=== PATIENT | female | born 1940 | race Caucasian/White ===

== ENCOUNTER → 2017-02-23 | Outpatient (CLI) | payer MEDICARE, OTHER ==
[~2017-02-23] MED LIST: AMOX-559 PO; ASPI-1471 PO; CHOL200074 PO; ESCI5TAB10 PO; FLUT16SP19 NS; GLUC-198 PO; MULT-1335 PO; TRIA1CAP85 PO; [UNRECOGNIZED DRUG - CODE] PO
--- NOTE | 2017-02-23 12:41 | RADIOLOGY IMAGING REPORT ---
FACILITY: [facility] [place] PATIENT NAME: Alejandra Freeman : 1940 MR: [id number] V: [id number] EXAM DATE: ORDERING PHYSICIAN: JUSTINA GONZALEZ TECHNOLOGIST: Location: [facility] Patient: Alejandra Freeman : 1940 Visit/Account:[id number] Date of Sevice: 02/23/2017 Examination: CHEST PA AND LAT Comparison: None. History: Cough, shortness of breath, and chest pain for one month Findings: Pulmonary hyperexpansion. No consolidation, nodule, or peribronchial inflammation. No pneum othorax, edema, or effusion. Cardiac and hilar contour size is within normal limits. Osseous structur es are intact. IMPRESSION: Pulmonary hyperexpansion. No findings of acute cardiopulmonary disease are otherwise identified. Report Dictated By: Sidney Moreau MD at 02/23/2017 12:35 PM Report E-Signed By: Sidney Moreau MD at 02/23/2017 12:37 PM WSN:[id number]
== END ==
LOC: RAD 12:02
PROVIDERS: ATTEND Nurse Practitioner Primary Care
DX: R91.8 Other nonspecific abnormal finding of lung field (principal)
CPT/HCPCS: 71046

== ENCOUNTER → 2017-02-27 | Outpatient (CLI) | payer MEDICARE, OTHER ==
[~2017-02-27] MED LIST changes: +CHOL100059 PO; +ESCI10TA8 PO; +TRIA-20 PO
[2017-02-27 11:10] LABS: PLATELET COUNT, AUTOMATED 316 K/uL (150-450)
[2017-02-27 11:44] LABS: LDL CHOLESTEROL 101 mg/dl
== END ==
LOC: LAB 10:52
PROVIDERS: ATTEND Emergency Medicine
DX: M85.80 Other specified disorders of bone density and structure, unspecified site (principal); R63.4 Abnormal weight loss; I10 Essential (primary) hypertension
CPT/HCPCS: 36415; 82040; 82247; 82306; 82310; 82374; 82435; 82465; 82565; 82947; 83718; 84075; 84132; 84155; 84295; 84443; 84450; 84460; 84478; 84520; 85007; 85027

== ENCOUNTER → 2017-03-13 | Outpatient (CLI) | payer MEDICARE, OTHER ==
[~2017-03-13] MED LIST changes: +ATOR40TA24 PO; +DIPH0.5D12 IM; +PNEU0.5D3 IM
== END ==
LOC: LAB 10:06
PROVIDERS: ATTEND Emergency Medicine
DX: R74.8 Abnormal levels of other serum enzymes (principal)
CPT/HCPCS: 36415; 82040; 82247; 82248; 84075; 84155; 84450; 84460

== ENCOUNTER → 2017-04-12 | Outpatient (CLI) | payer MEDICARE, OTHER | LOC: LAB 08:26 | PROVIDERS: ATTEND Emergency Medicine | DX: E78.5 Hyperlipidemia, unspecified (principal) | CPT/HCPCS: 36415; 82465; 83718; 84478 ==

== ENCOUNTER 2017-05-23 17:07 | Emergency (ER) | payer MEDICARE, OTHER ==
--- NOTE | 2017-05-23 17:21 | ER Report ---
History and Physical Time Seen By MD: 17:20 Hx. of Stated Complaint: patient reports that she has had a cough for the last 3 months. she reports that she became short of breath in the last 2 days HPI/ROS CHIEF COMPLAINT: Shortness of breath, cough HISTORY OF PRESENT ILLNESS: 76-year-old female patient presents to emergency room with complaint of shortness of breath and cough. Patient states that her and her were traveling, mid visited [place]. While there there patient was walking without any difficulties. She states when they returned home today she did take her dog out for a walk, during that time she felt very short of breath. She states that she ended up cutting the walk short to return back to the house. Patient denies any fevers, chills. Patient states she has had a cough for the past several months. She states that she was doing well until today when things started to get worse. REVIEW OF SYSTEMS: Respiratory: Noted above Cardiovascular: Patient was having substernal chest pain. Gastrointestinal: No vomiting, no abdominal pain. Musculoskeletal: No back pain. Allergies: Coded Allergies: No Known Drug Allergies (Unverified , 07/30/16) Home Meds Active Scripts Albuterol Sulfate 90 Mcg/Act (PROAIR HFA 90 MCG/ACT) 8.5 Gm Hfa.aer.ad, 2 PUFF IH Q4-6H Y for SHORTNESS OF BREATH, #1 INHALER Prov:DANIEL ROBINS 05/23/17 Atorvastatin Calcium (LIPITOR) 40 Mg Tablet, 1 TAB PO QDAY, #90 TAB 3 Refills Prov:IVAN ESCOBAR MD 04/12/17 Triamterene/Hydrochlorothiazid (TRIAMTERENE-HCTZ 37.5-25 MG TB) 1 Each Tablet, 1 TAB PO DAILY, #90 TAB 3 Refills Prov:IVAN ESCOBAR MD 03/06/17 Escitalopram Oxalate (ESCITALOPRAM OXALATE) 10 Mg Tablet, 1 TAB PO DAILY, #90 TAB 3 Refills Prov:IVAN ESCOBAR MD 03/06/17 Fluticasone Prop 50 Mcg Ns (FLONASE 50 MCG NS) 16 Gm [place].susp, 1 SPRAY NS BID , #1 BOT 0 Refills Prov:JUSTINA GONZALEZ DNP, PEDIATRIC LPN-BC 01/19/17 Reported Medications Cholecalciferol (Vitamin D3) (VITAMIN D3) 1,000 Unit Capsule, 1 CAPSULE PO DAILY , CAPSULE 02/27/17 Multivitamin With Minerals (MULTIPLE VITAMIN) 1 Each Tablet, 1 EACH PO QDAY, TAB 07/30/16 Calcium Citrate (CALCIUM CITRATE) 480 Gm Granules, 1600 MG PO QDAY 01/12/16 Glucosa [place]ias 2KCL/Chondroitin [place] (GLUCOSAMINE & CHONDROITIN CAP) 1 Each Capsule, 4 EACH PO QDAY, CAPSULE 01/12/16 Aspirin (ASPIR 81) 81 Mg Tablet.dr, 81 MG PO QDAY, TAB 01/12/16 Past Medical/Surgical History Patient has a past medical history of irregular heartbeat, hypertension, osteopenia. Patient has a surgical history of inguinal hernia repair, tonsillectomy. Reviewed Nurses Notes: Yes Smoking Status: Never Smoker Constitutional Vital Sign - Last 24 Hours 05/23/17 05/23/17 05/23/17 05/23/17 17:11 17:12 17:16 17:30 Temp 98.4 Pulse 96 Resp 24 B/P (MAP) 165/99 (121) 165/99 154/96 (115) 155/99 (117) Pulse Ox 90 O2 Delivery Room Air 05/23/17 05/23/17 05/23/17 05/23/17 17:31 17:31 17:37 17:38 Pulse 96 94 96 Resp 14 30 14 Pulse Ox 93 99 O2 Delivery Nasal Cannula O2 Flow Rate 2.0 05/23/17 05/23/17 05/23/17 05/23/17 18:00 18:07 18:30 18:37 Pulse 89 84 Resp 9 11 B/P (MAP) 144/86 (105) 136/80 (98) Pulse Ox 97 98 05/23/17 05/23/17 18:45 19:00 Pulse 85 82 Resp 16 9 B/P (MAP) 149/83 (105) Pulse Ox 97 97 Physical Exam General Appearance: The patient is alert, has no immediate need for airway protection and no current signs of toxicity. ENT: Tympanic membranes are pearly-marvin, auditory canals are patent, mucous membranes are moist. Respiratory: Chest is non tender, lungs are clear to auscultation. Cardiac: regular rate and rhythm Gastrointestinal: Abdomen is soft and non tender, no masses, bowel sounds normal. Musculoskeletal: Neck: Neck is supple and non tender. Extremities have full range of motion and are non tender. Skin: No rashes or lesions. DIFFERENTIAL DIAGNOSIS: After history and physical exam differential diagnosis was considered for shortness of breath including but not limited to pulmonary infectious process, COPD, asthma, pulmonary embolus and congestive heart failure. Medical Decision Making Data Points Result Diagram: 05/23/17 1720 05/23/17 1720 Laboratory Hematology Test 05/23/17 17:20 Red Blood Count 4.56 M/uL (4.17-5.56) Mean Corpuscular Volume 91.8 fL (80.0-96.0) Mean Corpuscular Hemoglobin 32.1 pg (26.0-33.0) Mean Corpuscular Hemoglobin Concent 35.0 g/dL (32.0-36.0) Red Cell Distribution Width 13.7 % (11.5-14.5) Mean Platelet Volume 7.7 fL (7.2-11.1) Neutrophils (%) (Auto) 56.0 % (39.4-72.5) Lymphocytes (%) (Auto) 30.0 % (17.6-49.6) Monocytes (%) (Auto) 8.2 % (4.1-12.4) Eosinophils (%) (Auto) 5.2 % (0.4-6.7) Basophils (%) (Auto) 0.6 % (0.3-1.4) Nucleated RBC Relative Count (auto) 0.1 /100WBC Neutrophils # (Auto) 4.4 K/uL (2.0-7.4) Lymphocytes # (Auto) 2.3 K/uL (1.3-3.6) Monocytes # (Auto) 0.6 K/uL (0.3-1.0) Eosinophils # (Auto) 0.4 K/uL (0.0-0.5) Basophils # (Auto) 0.0 K/uL (0.0-0.1) Nucleated RBC Absolute Count (auto) 0.01 K/uL D-Dimer Quantitative (PE/DVT) 0.42 ug/ml (0-0.50) Sodium Level 133 mmol/L (137-145) Potassium Level 3.8 mmol/L (3.5-5.0) Chloride Level 94 mmol/L (98-107) Carbon Dioxide Level 26 mmol/L (22-31) Blood Urea Nitrogen 17 mg/dl (7-18) Creatinine 0.80 mg/dl (0.52-1.04) Glomerular Filtration Rate Calc > 60.0 Random Glucose 98 mg/dl (75-110) Calcium Level 9.5 mg/dl (8.4-10.2) Total Bilirubin 0.3 mg/dl (0.2-1.3) Aspartate Amino Transf (AST/SGOT) 52 U/L (0-35) Alanine Aminotransferase (ALT/SGPT) 49 U/L (0-56) Alkaline Phosphatase 102 U/L (0-126) Troponin I < 0.012 ng/ml B-Type Natriuretic Peptide 134 pg/ml (0-100) Total Protein 7.6 gm/dl (6.3-8.2) Albumin 4.1 g/dl (3.5-5.0) Chemistry Test 05/23/17 17:20 White Blood Count 7.8 k/uL (4.5-11.0) Red Blood Count 4.56 M/uL (4.17-5.56) Hemoglobin 14.6 g/dL (12.0-16.0) Hematocrit 41.9 % (34.0-47.0) Mean Corpuscular Volume 91.8 fL (80.0-96.0) Mean Corpuscular Hemoglobin 32.1 pg (26.0-33.0) Mean Corpuscular Hemoglobin Concent 35.0 g/dL (32.0-36.0) Red Cell Distribution Width 13.7 % (11.5-14.5) Platelet Count 263 K/uL (150-450) Mean Platelet Volume 7.7 fL (7.2-11.1) Neutrophils (%) (Auto) 56.0 % (39.4-72.5) Lymphocytes (%) (Auto) 30.0 % (17.6-49.6) Monocytes (%) (Auto) 8.2 % (4.1-12.4) Eosinophils (%) (Auto) 5.2 % (0.4-6.7) Basophils (%) (Auto) 0.6 % (0.3-1.4) Nucleated RBC Relative Count (auto) 0.1 /100WBC Neutrophils # (Auto) 4.4 K/uL (2.0-7.4) Lymphocytes # (Auto) 2.3 K/uL (1.3-3.6) Monocytes # (Auto) 0.6 K/uL (0.3-1.0) Eosinophils # (Auto) 0.4 K/uL (0.0-0.5) Basophils # (Auto) 0.0 K/uL (0.0-0.1) Nucleated RBC Absolute Count (auto) 0.01 K/uL D-Dimer Quantitative (PE/DVT) 0.42 ug/ml (0-0.50) Glomerular Filtration Rate Calc > 60.0 Calcium Level 9.5 mg/dl (8.4-10.2) Total Bilirubin 0.3 mg/dl (0.2-1.3) Aspartate Amino Transf (AST/SGOT) 52 U/L (0-35) Alanine Aminotransferase (ALT/SGPT) 49 U/L (0-56) Alkaline Phosphatase 102 U/L (0-126) Troponin I < 0.012 ng/ml B-Type Natriuretic Peptide 134 pg/ml (0-100) Total Protein 7.6 gm/dl (6.3-8.2) Albumin 4.1 g/dl (3.5-5.0) Coagulation Test 05/23/17 17:20 D-Dimer Quantitative (PE/DVT) 0.42 ug/ml EKG/Imaging EKG Interpretation 12 lead EKG: Rhythm: normal sinus rhythm with a ventricular rate of 86 beats per minute [place]: normal QRS: normal ST segments: normal Imaging 2 VIEWS CHEST INDICATION: Respiratory distress. COMPARISON: 02/23/2017. FINDINGS: Cardiomediastinal silhouette and pulmonary vessels within normal limits. There is no focal infiltrate or lobar consolidation. There is no pneumothorax or pleural effusion. No nodule. Upper abdomen is unremarkable. No acute bony abnormality. IMPRESSION: 1. No acute cardiopulmonary process. Report Dictated By: Sarkis Vinson at 05/23/2017 6:25 PM Report E-Signed By: Sarkis Vinson at 05/23/2017 6:26 PM ED Course/Re-evaluation ED Course Patient was admitted and examined, history and physical were obtained. Differential diagnoses were considered. On examination lungs were clear, she had initially been assessed by a nurse practitioner student, who said that her lungs were wheezy. Patient did receive a treatment of DuoNeb. There is significant improvement in lung sounds after that. A CBC, CMP, EKG, chest x-ray , d-dimer, troponin were done. The lab results were unremarkable, chest x-ray was negative. Patient had a normal sinus rhythm on her EKG. We discussed the findings with the patient. Patient states she still feeling much improved. We will go ahead and discharge patient home with a prescription for albuterol inhaler. I believe this is likely an upper respiratory infection which is causing more of a reactive airway problem. Patient and verbalized understanding and agreement with plan. Decision to Disposition Date: May 23, 2017 Decision to Disposition Time: 19:00 Depart Departure Latest Vital Signs Vital Signs Date Time Temp Pulse Resp B/P (MAP) Pulse Ox O2 Delivery O2 Flow Rate FiO2 05/23/17 19:00 82 9 149/83 (105) 97 05/23/17 17:31 Nasal Cannula 2.0 05/23/17 17:12 98.4 Impression: Primary Impression: Acute URI Condition: Improved Disposition: HOME OR SELF-CARE Referrals: IVAN ESCOBAR MD (PCP) New Scripts Albuterol Sulfate 90 Mcg/Act (PROAIR HFA 90 MCG/ACT) 8.5 Gm Hfa.aer.ad 2 PUFF IH Q4-6H Y for SHORTNESS OF BREATH, #1 INHALER Prov: DANIEL ROBINS 05/23/17 Patient Instructions: Upper Respiratory Infection (ED) Additional Instructions: You have an acute upper respiratory infection (URI). URI's are commonly viral and with resolve with symptom managed. The albuterol worked well for you and we have sent a script for this in. Drink plenty of fluid, rest, and use a cool air vaporizer. We recommend you pickler helper OTC Mucinex for chest congestion. Follow-up with you primary care provider for the chronic cough or if symptoms fail to resolve. Return to the emergency room if condition worsens. DANIEL ROBINS May 23, 2017 17:21
[2017-05-23] MEDS ORDERED: ALBUTEROL/IPRATROPIUM 3 ML NEB ONE (17:24)
[2017-05-23] MEDS ORDERED: ALBUTEROL/IPRATROPIUM 3 ML NEB NEB ONE (17:25)
[2017-05-23 17:48] LABS: PLATELET COUNT, AUTOMATED 263 K/uL (150-450)
--- NOTE | 2017-05-23 18:30 | RADIOLOGY IMAGING REPORT ---
[place] [facility] [place] NAME: Alejandra Freeman : 1940 MR: [id number] V: [id number] EXAM DATE: ORDERING PHYSICIAN: DANIEL ROBINS TECHNOLOGIST: Location: [facility] Patient: Alejandra Freeman : 1940 Visit/Account:[id number] Date of Sevice: 05/23/2017 2 VIEWS CHEST INDICATION: Respiratory distress. COMPARISON: 02/23/2017. FINDINGS: Cardiomediastinal silhouette and pulmonary vessels within normal limits. There is no focal infiltrate or lobar consolidation. There is no pneumothorax or pleural effusion. No nodule. Upper abdomen is unremarkable. No acute bony abnormality. IMPRESSION: 1. No acute cardiopulmonary process. Report Dictated By: Sarkis Vinson at 05/23/2017 6:25 PM Report E-Signed By: Sarkis Vinson at 05/23/2017 6:26 PM WSN:[id number]
--- NOTE | 2017-05-23 18:51 | EKG ---
FACILITY: PATIENT NAME: CYNTHIA STROUD : [id number] MR: [id number] V: [id number] EXAM DATE: ORDERING PHYSICIAN: DANIEL ROBINS TECHNOLOGIST: MASSIEL Springer Reason : SOB Blood Pressure : / mmHG Vent. Rate : 086 BPM Atrial Rate : 086 BPM P-R Int : 170 ms QRS Dur : 098 ms QT Int : 398 ms P-R-T Axes : 074 030 060 degrees QTc Int : 476 ms Normal sinus rhythm RSR' or QR pattern in V1 suggests right ventricular conduction delay Borderline ECG No previous ECGs available Confirmed by WALDO TORREZ ([id number]) on 05/24/2017 6:33:06 AM Referred By: JULIENNE Confirmed By:WALDO TORREZ
[2017-05-23] MEDS ORDERED: ALBU8.5H IH (18:55)
[2017-05-23 19:00] VITALS: BP 149/83
[2017-05-24] MEDS ORDERED: PRED-1 PO (11:31)
[2017-05-24] MEDS ORDERED: PROM-110 PO (11:31)
[2017-05-24] MEDS ORDERED: AZIT-1 PO (11:31)
[2017-05-24] MEDS ORDERED: ALPR-1 PO (11:35)
== END 2017-05-23 19:16 | disposition home or self-care (01) ==
LOC: ER 17:46
DX: J06.9 Acute upper respiratory infection, unspecified (principal)
CPT/HCPCS: 83880; 84484; 85025; 85379; 93005; 94640; 99284; J7620; 71046; 82040; 82247; 82310; 82374; 82435; 82565; 82947; 84075; 84132; 84155; 84295; 84450; 84460; 84520

== ENCOUNTER → 2017-05-24 | Outpatient (CLI) | payer MEDICARE, OTHER ==
[~2017-05-24] MED LIST changes: +ALBU8.5H IH; +ALPR-1 PO; +AZIT-1 PO; +PRED-1 PO; +PROM-110 PO
[2017-05-24 11:51] LABS: PLATELET COUNT, AUTOMATED 275 K/uL (150-450)
== END ==
LOC: LAB 11:29
PROVIDERS: ATTEND Emergency Medicine
DX: R06.00 Dyspnea, unspecified (principal)
CPT/HCPCS: 36415; 82040; 82247; 82310; 82374; 82435; 82565; 82947; 83880; 84075; 84132; 84155; 84295; 84450; 84460; 84520; 85025

== ENCOUNTER → 2017-05-28 | Outpatient (CLI) | payer MEDICARE, OTHER ==
[2017-05-28 15:32] LABS: PLATELET COUNT, AUTOMATED 282 K/uL (150-450)
== END ==
LOC: LAB 14:46
PROVIDERS: ATTEND Emergency Medicine
DX: J06.9 Acute upper respiratory infection, unspecified (principal); E87.1 Hypo-osmolality and hyponatremia; R06.00 Dyspnea, unspecified
CPT/HCPCS: 36415; 82310; 82374; 82435; 82565; 82947; 83880; 84132; 84295; 84520; 85025

== ENCOUNTER → 2017-06-04 | Outpatient (CLI) | payer MEDICARE, OTHER ==
--- NOTE | 2017-06-06 09:15 | RADIOLOGY IMAGING REPORT ---
[place] [facility] [place] CYNTHIA STROUD : [id number] MR: [id number] V: [id number] EXAM DATE: ORDERING PHYSICIAN: IVAN ESCOBAR TECHNOLOGIST: Jacy Mauricio EXAMINATION:TWO-DIMENSIONAL ECHOCARDIOGRAPH REASON:ELEVATED BNP 2D Measurements (normal values in centimeters) LV endLV endRV endVent.LV PostAorticLeftPercent DiastolicSystolicDiastolicSeptumWallRootAtriumShortening (3.5-5.7)(0.9-2.6)(0.6-1.1)(0.6-1.1)(2.0-3.7)(1.9-4.0)(25-35%) [id number]% STROKE VOLUME: 40ml ESTIMATED EJECTION FRACTION:70% PARASTERNAL LONG AXIS: Overall left ventricular systolic function appears to be normal. Left ventricle also appears to contract normally & the TAPSE is measured at 2.3. Aortic valve & mitral valve both appear to open normally. Possibly a trace of prolapse in the posterior leaflet of the mitral valve. Color examination of the valves reveals a trace of mitral insufficiency. A trace of aortic insufficiency was also noted. PARASTERNAL SHORT AXIS: Overall left ventricular function again appears to be normal. Aortic valve is trileaflet in configuration & appears to open normally with a trace of aortic insufficiency. A trace of tricuspid insufficiency is also noted as well as a trace of pulmonic insufficiency. APICAL FOUR AND TWO CHAMBER: Normal left ventricular ejection fraction. Normal chamber sizes. The aortic valve area & mitral valve area both measure within normal ranges at 2.0 & 4.3cm2 respectively. The left atrial & right atrial volumes are measured within normal ranges at 22 & 21ml/m2. The tricuspid regurgitation Vmax measured 2.69m/sec. SUBCOSTAL VIEW: No pericardial effusion was noted. No atrioseptal or ventriculoseptal defects were appreciated. Doppler examination of the mitral valve in diastole does reveal the A wave > E wave. IVC is normal in size. OVERALL IMPRESSION: 1. Normal left ventricular systolic function with a Grade 1 mild decrease in diastolic function. 2. There are normal chamber sizes. 3. Right ventricle appears to contract normally. 4. A trileaflet aortic valve with no stenosis & a trace of aortic insufficiency. 5. A trace of pulmonic insufficiency. 6. A trace of mitral insufficiency with no mitral stenosis. There is a minimal amount of prolapse of the posterior leaflet of the mitral valve. 7. A trace amount of tricuspid insufficiency with normal right ventricular systolic pressures. Dictated by: Jacinda Michele M.D. on 06/05/2017 at 14:06 Transcribed by: DEMARIO on 06/06/2017 at 7:16 Approved by: Jacinda Michele M.D. on 06/06/2017 at 9:14 [facility]
== END ==
LOC: US 03:31
PROVIDERS: ATTEND Emergency Medicine
DX: R79.89 Other specified abnormal findings of blood chemistry (principal); E87.1 Hypo-osmolality and hyponatremia; I35.1 Nonrheumatic aortic (valve) insufficiency; I37.1 Nonrheumatic pulmonary valve insufficiency; I34.0 Nonrheumatic mitral (valve) insufficiency; I36.1 Nonrheumatic tricuspid (valve) insufficiency
CPT/HCPCS: 36415; 82310; 82374; 82435; 82565; 82947; 84132; 84295; 84520; 93306

== ENCOUNTER 2017-06-12 19:45 | Emergency (ER) | payer MEDICARE, OTHER ==
--- NOTE | 2017-06-12 19:48 | ER Report ---
History and Physical Time Seen By MD: 19:46 HPI/ROS CHIEF COMPLAINT: Epigastric pain HISTORY OF PRESENT ILLNESS: 76-year-old female with sudden onset of aching deep bilateral upper quadrant pain since late afternoon. She notes severe nausea and was leaning over the toilet, but never actually vomited. She denies diarrhea or dysuria. Patient was seen by her primary care this morning for follow-up of echocardiogram and elevated BMP as well as management of her hypertension, hyperlipidemia and other medical issues. Patient did not have any symptoms at that time. Patient was concerned that she might be having a heart attack. She does note some mild shortness of breath but no diaphoresis. She notes no exacerbating or alleviating factors except lying down. She thinks the pain is significantly better since she relaxed here in the ER. REVIEW OF SYSTEMS: Respiratory: No cough, no dyspnea. Cardiovascular: No chest pain, no palpitations. Gastrointestinal: As above Musculoskeletal: No back pain. Allergies: Coded Allergies: No Known Drug Allergies (Unverified , 06/12/17) Home Meds Active Scripts Ondansetron (ZOFRAN ODT) 4 Mg Tab.rapdis, 4 MG PO every 6 hours Y for NAUSEA/ VOMITING, #12 TAB TAKE 1 TABLET BY MOUTH EVERY 12 HOURS Prov:DAMON SALINAS DO 06/12/17 Oxycodone Hcl/Acetaminophen (PERCOCET 5-325 MG TABLET) 1 Each Tablet, 1 EACH PO Q4-6H Y for PAIN, #15 Prov:DAMON SALINAS DO 06/12/17 Alprazolam 0.25 Mg Tab (XANAX 0.25 MG TAB) 0.25 Mg Tablet, 1 TAB PO TID for Anxiety, #10 TAB Prov:IVAN ESCOBAR MD 05/29/17 Promethazine Hcl (PROMETHAZINE HCL) 25 Mg Tablet, 25 MG PO Q8H for Nausea, #10 TAB Prov:IVAN ESCOBAR MD 05/24/17 Prednisone 10 Mg Tab (PREDNISONE 10 MG TAB) 10 Mg Tablet, 6 TAB PO QDAY, #42 TAB Take 6 tabs daily for 2 days. Reduce by 1 tab every 2 days until gone. Take with food. Prov:IVAN ESCOBAR MD 05/24/17 Albuterol Sulfate 90 Mcg/Act (PROAIR HFA 90 MCG/ACT) 8.5 Gm Hfa.aer.ad, 2 PUFF IH Q4-6H Y for SHORTNESS OF BREATH, #1 INHALER Prov:DANIEL ROBINS PROFESSIONAL SKATEBOARDER 05/23/17 Atorvastatin Calcium (LIPITOR) 40 Mg Tablet, 1 TAB PO QDAY, #90 TAB 3 Refills Prov:IVAN ESCOBAR MD 04/12/17 Triamterene/Hydrochlorothiazid (TRIAMTERENE-HCTZ 37.5-25 MG TB) 1 Each Tablet, 1 TAB PO DAILY, #90 TAB 3 Refills Prov:IVAN ESCOBAR MD 03/06/17 Escitalopram Oxalate (ESCITALOPRAM OXALATE) 10 Mg Tablet, 1 TAB PO DAILY, #90 TAB 3 Refills Prov:IVAN ESCOBAR MD 03/06/17 Fluticasone Prop 50 Mcg Ns (FLONASE 50 MCG NS) 16 Gm [place].susp, 1 SPRAY NS BID , #1 BOT 0 Refills Prov:JUSTINA GONZALEZ DNP, PROFESSIONAL SKATEBOARDER-BC 01/19/17 Reported Medications Cholecalciferol (Vitamin D3) (VITAMIN D3) 1,000 Unit Capsule, 1 CAPSULE PO DAILY , CAPSULE 02/27/17 Multivitamin With Minerals (MULTIPLE VITAMIN) 1 Each Tablet, 1 EACH PO QDAY, TAB 07/30/16 Calcium Citrate (CALCIUM CITRATE) 480 Gm Granules, 1600 MG PO QDAY 01/12/16 Glucosa [place] 2KCL/Chondroitin [place] (GLUCOSAMINE & CHONDROITIN CAP) 1 Each Capsule, 4 EACH PO QDAY, CAPSULE 01/12/16 Aspirin (ASPIR 81) 81 Mg Tablet.dr, 81 MG PO QDAY, TAB 01/12/16 Discontinued Scripts Azithromycin (ZITHROMAX) 250 Mg Tablet, 2 TAB PO ONCE, #6 TAB Take 2 now and then 1 daily for 4 days Prov:IVAN ESCOBAR MD 05/24/17 Past Medical/Surgical History Past Medical History HEENT: Reports hx of: hearing deficit (SENSORYNEURAL HEARING LOSS ) recurrent sinusitis (FREQUENT SINUS INFECTIONS ) Cardiovascular: Reports hx of: atrial fibrillation (1969's and s, 1990) hypertension (ESSENTIAL) other CV history (HX OF PAT NO RECURRENCES ) Respiratory: Reports hx of: other respiratory history (positive PPD reaction, several chest X-rays) Gastrointestinal: Reports hx of: diverticulosis GERD (REFLUX ) other GI history (HC OF COLON POLYPS ) Age at menopause: MENOPAUSAL SYMPTOMS Musculoskeletal: Reports hx of: osteoarthritis (OF LUMBAR SPINE AND OSTEOPENIA ) osteopenia scoliosis Past Surgical History HEENT: Reports hx of: cataract extraction (Fall 2016) tonsillectomy (2007) Gastrointestinal: Reports hx of: hernia repair (inguinal, 1967) Reviewed Nurses Notes: Yes Old Medical Records Reviewed: Yes Smoking Status: Never Smoker Constitutional Vital Sign - Last 24 Hours 06/12/17 19:53 Temp 98.7 Pulse 75 Resp 18 B/P (MAP) 132/84 Pulse Ox 96 Physical Exam General Appearance: The patient is alert, has no immediate need for airway protection and no current signs of toxicity. Vital signs stable, afebrile's, pulse ox HEENT: Pupils equal and round no injection. Oropharynx without redness or exudate, mucous. Membranes are moist Respiratory: Chest is non tender, lungs are clear to auscultation. No chest wall tenderness Cardiac: regular rate and rhythm, no murmur Gastrointestinal: Abdomen is soft, mild epigastric tenderness, no masses, bowel sounds normal. Musculoskeletal: Neck: Neck is supple and non tender. No JVD, no lymphadenopathy Extremities have full range of motion and are non tender. Skin: No rashes or lesions. DIFFERENTIAL DIAGNOSIS: After history and physical exam differential diagnosis was considered for abdominal pain including but not limited to appendicitis, cholecystitis, gastritis, cardiac ischemia and urinary tract infection. Medical Decision Making Data Points Result Diagram: 06/12/17201106/12/172011 Laboratory Hematology Test 06/12/17 19:52 06/12/17 20:12 Urine Color Yellow Urine Clarity Cloudy Urine pH 7.0 pH (4.8-9.5) Urine Specific [place] 1.015 Urine Protein Negative mg/dL (NEGATIVE) Urine Glucose (UA) Negative mg/dL (NEGATIVE) Urine Ketones Negative mg/dL (NEGATIVE) Urine Blood Negative (NEGATIVE) Urine Nitrite Negative (NEGATIVE) Urine Bilirubin Negative (NEGATIVE) Urine Urobilinogen Negative mg/dL (0.2-1.9) Urine Leukocyte Esterase Negative (NEGATIVE) Urine RBC <1 /HPF (0-2/HPF) Urine WBC <1 /HPF (0-5/HPF) Urine Squamous Epithelial Cells Few /LPF (</=FEW) Urine Amorphous Crystals Few /HPF Urine Bacteria Negative /HPF (NONE-FEW) Urine Mucus Few /HPF (NONE-FEW) Red Blood Count 4.52 M/uL (4.17-5.56) Mean Corpuscular Volume 91.3 fL (80.0-96.0) Mean Corpuscular Hemoglobin 31.8 pg (26.0-33.0) Mean Corpuscular Hemoglobin Concent 34.8 g/dL (32.0-36.0) Red Cell Distribution Width 13.8 % (11.5-14.5) Mean Platelet Volume 7.1 fL (7.2-11.1) Neutrophils (%) (Auto) 82.7 % (39.4-72.5) Lymphocytes (%) (Auto) 9.9 % (17.6-49.6) Monocytes (%) (Auto) 5.8 % (4.1-12.4) Eosinophils (%) (Auto) 1.2 % (0.4-6.7) Basophils (%) (Auto) 0.4 % (0.3-1.4) Nucleated RBC Relative Count (auto) 0.0 /100WBC Neutrophils # (Auto) 8.7 K/uL (2.0-7.4) Lymphocytes # (Auto) 1.0 K/uL (1.3-3.6) Monocytes # (Auto) 0.6 K/uL (0.3-1.0) Eosinophils # (Auto) 0.1 K/uL (0.0-0.5) Basophils # (Auto) 0.0 K/uL (0.0-0.1) Nucleated RBC Absolute Count (auto) 0.01 K/uL Sodium Level 132 mmol/L (137-145) Potassium Level 3.1 mmol/L (3.5-5.0) Chloride Level 95 mmol/L (98-107) Carbon Dioxide Level 25 mmol/L (22-31) Blood Urea Nitrogen 12 mg/dl (7-18) Creatinine 0.80 mg/dl (0.52-1.04) Glomerular Filtration Rate Calc > 60.0 Random Glucose 130 mg/dl (75-110) Calcium Level 9.7 mg/dl (8.4-10.2) Total Bilirubin 1.1 mg/dl (0.2-1.3) Aspartate Amino Transf (AST/SGOT) 120 U/L (0-35) Alanine Aminotransferase (ALT/SGPT) 78 U/L (0-56) Alkaline Phosphatase 101 U/L (0-126) Troponin I < 0.012 ng/ml Total Protein 7.3 gm/dl (6.3-8.2) Albumin 4.1 g/dl (3.5-5.0) Amylase Level 426 U/L (0-110) Lipase 5022 U/L (23-300) Chemistry Test 06/12/17 19:52 06/12/17 20:12 Urine Color Yellow Urine Clarity Cloudy Urine pH 7.0 pH (4.8-9.5) Urine Specific [place] 1.015 Urine Protein Negative mg/dL (NEGATIVE) Urine Glucose (UA) Negative mg/dL (NEGATIVE) Urine Ketones Negative mg/dL (NEGATIVE) Urine Blood Negative (NEGATIVE) Urine Nitrite Negative (NEGATIVE) Urine Bilirubin Negative (NEGATIVE) Urine Urobilinogen Negative mg/dL (0.2-1.9) Urine Leukocyte Esterase Negative (NEGATIVE) Urine RBC <1 /HPF (0-2/HPF) Urine WBC <1 /HPF (0-5/HPF) Urine Squamous Epithelial Cells Few /LPF (</=FEW) Urine Amorphous Crystals Few /HPF Urine Bacteria Negative /HPF (NONE-FEW) Urine Mucus Few /HPF (NONE-FEW) White Blood Count 10.5 k/uL (4.5-11.0) Red Blood Count 4.52 M/uL (4.17-5.56) Hemoglobin 14.4 g/dL (12.0-16.0) Hematocrit 41.3 % (34.0-47.0) Mean Corpuscular Volume 91.3 fL (80.0-96.0) Mean Corpuscular Hemoglobin 31.8 pg (26.0-33.0) Mean Corpuscular Hemoglobin Concent 34.8 g/dL (32.0-36.0) Red Cell Distribution Width 13.8 % (11.5-14.5) Platelet Count 261 K/uL (150-450) Mean Platelet Volume 7.1 fL (7.2-11.1) Neutrophils (%) (Auto) 82.7 % (39.4-72.5) Lymphocytes (%) (Auto) 9.9 % (17.6-49.6) Monocytes (%) (Auto) 5.8 % (4.1-12.4) Eosinophils (%) (Auto) 1.2 % (0.4-6.7) Basophils (%) (Auto) 0.4 % (0.3-1.4) Nucleated RBC Relative Count (auto) 0.0 /100WBC Neutrophils # (Auto) 8.7 K/uL (2.0-7.4) Lymphocytes # (Auto) 1.0 K/uL (1.3-3.6) Monocytes # (Auto) 0.6 K/uL (0.3-1.0) Eosinophils # (Auto) 0.1 K/uL (0.0-0.5) Basophils # (Auto) 0.0 K/uL (0.0-0.1) Nucleated RBC Absolute Count (auto) 0.01 K/uL Glomerular Filtration Rate Calc > 60.0 Calcium Level 9.7 mg/dl (8.4-10.2) Total Bilirubin 1.1 mg/dl (0.2-1.3) Aspartate Amino Transf (AST/SGOT) 120 U/L (0-35) Alanine Aminotransferase (ALT/SGPT) 78 U/L (0-56) Alkaline Phosphatase 101 U/L (0-126) Troponin I < 0.012 ng/ml Total Protein 7.3 gm/dl (6.3-8.2) Albumin 4.1 g/dl (3.5-5.0) Amylase Level 426 U/L (0-110) Lipase 5022 U/L (23-300) Urinalysis Test 06/12/17 19:52 Urine Color Yellow Urine Clarity Cloudy Urine pH 7.0 pH (4.8-9.5) Urine Specific [place] 1.015 Urine Protein Negative mg/dL (NEGATIVE) Urine Glucose (UA) Negative mg/dL (NEGATIVE) Urine Ketones Negative mg/dL (NEGATIVE) Urine Blood Negative (NEGATIVE) Urine Nitrite Negative (NEGATIVE) Urine Bilirubin Negative (NEGATIVE) Urine Urobilinogen Negative mg/dL (0.2-1.9) Urine Leukocyte Esterase Negative (NEGATIVE) Urine RBC <1 /HPF (0-2/HPF) Urine WBC <1 /HPF (0-5/HPF) Urine Squamous Epithelial Cells Few /LPF (</=FEW) Urine Amorphous Crystals Few /HPF Urine Bacteria Negative /HPF (NONE-FEW) Urine Mucus Few /HPF (NONE-FEW) EKG/Imaging EKG Interpretation 12 lead EK Rhythm: normal sinus rhythm [place]: normal QRS: RSR pattern with consistent with incomplete right bundle branch block ST segments: normal, no evidence of ischemia, comparison to previous EKG dated 05/23/17, no significant change ED Course/Re-evaluation Clinical Indication for ER IV: IV Access ED Course Patient was admitted to an examination room. H&P was done. The differential diagnosis was considered. On clinical examination. Patient has epigastric pain radiating to both upper quadrants and into her back. Patient was concerned about a heart attack. EKG was performed. Is unchanged from a previous EKG from several weeks ago. Canon is negative. Her lipase is elevated at 5000. Symptoms are better. I did offer her the option of admission with IV fluid hydration and management of her pain. Patient like to go home on oral Zofran and Phenergan. She is advised a clear liquid diet. She is advised to follow-up with her primary care in the next 2-3 days for recheck. Decision to Disposition Date: June 12, 2017 Decision to Disposition Time: 21:19 Depart Departure Latest Vital Signs Vital Signs Date Time Temp Pulse Resp B/P (MAP) Pulse Ox O2 Delivery O2 Flow Rate FiO2 06/12/17 19:53 98.7 75 18 132/84 96 Impression: Primary Impression: Pancreatitis Condition: Improved Disposition: HOME OR SELF-CARE Referrals: IVAN ESCOBAR MD (PCP) New Scripts Ondansetron (ZOFRAN ODT) 4 Mg Tab.rapdis 4 MG PO every 6 hours Y for NAUSEA/VOMITING, #12 TAB TAKE 1 TABLET BY MOUTH EVERY 12 HOURS Prov: DAMON SALINAS DO 06/12/17 Oxycodone Hcl/Acetaminophen (PERCOCET 5-325 MG TABLET) 1 Each Tablet 1 EACH PO Q4-6H Y for PAIN, #15 Prov: DAMON SALINAS DO 06/12/17 Patient Instructions: Pancreatitis (ED) Additional Instructions: Follow clear liquid diet for 24-48 hours and advance to the brat diet, bananas, rice, applesauce and toast Avoid fatty food, greasy foods, vegetables and dairy products Use medication to treat her symptoms Continue all of your regular medications Follow-up with your primary care in 1-3 days for continued monitoring of her symptoms and likely an ultrasound of your right upper quadrant to look for gallstones Return to the ER for any worsening Problem Qualifiers Primary Impression: Pancreatitis Chronicity: acute Pancreatitis type: unspecified pancreatitis type Acute pancreatitis complication: unspecified Qualified Codes: K85.90 - Acute pancreatitis without necrosis or infection, unspecified DAMON SALINAS DO June 12, 2017 19:48
[2017-06-12 19:53] VITALS: BP 132/84
[2017-06-12 20:22] LABS: PLATELET COUNT, AUTOMATED 261 K/uL (150-450)
--- NOTE | 2017-06-12 20:41 | EKG ---
FACILITY: [facility] [place] PATIENT NAME: CYNTHIA STROUD : [id number] MR: [id number] V: [id number] EXAM DATE: ORDERING PHYSICIAN: DAMON SALINAS TECHNOLOGIST: CHANTELLE Test Reason : CARDIAC Blood Pressure : / mmHG Vent. Rate : 069 BPM Atrial Rate : 069 BPM P-R Int : 168 ms QRS Dur : 102 ms QT Int : 432 ms P-R-T Axes : 068 025 052 degrees QTc Int : 462 ms Normal sinus rhythm Possible Anteroseptal infarct , age undetermined T inversion consistent with anteroseptal ischemia vs normal variant When compared with ECG of 23-MAY-2017 17:50, Borderline criteria for Anteroseptal infarct are now present Confirmed by LILLY ARROYO ([id number]) on 06/13/2017 6:41:22 AM Referred By: Confirmed By:LILLY ARROYO
[2017-06-12] MEDS ORDERED: ONDA4TAB PO (21:22)
[2017-06-12] MEDS ORDERED: OXYC-865 PO (21:22)
[2017-06-12] MEDS ORDERED: oxyCODONE/ACETAMIN 5/325MG TH 2 TAB/BOTTLE PO ONE (21:25)
[2017-06-12] MEDS ORDERED: ONDANSETRON 4 MG ODT TH SL ONE (21:25)
== END 2017-06-12 21:45 | disposition home or self-care (01) ==
LOC: ER 19:57
DX: K85.90 Acute pancreatitis without necrosis or infection, unspecified (principal)
CPT/HCPCS: 81001; 82150; 83690; 84484; 85025; 93005; 99283; Q0162; 82040; 82247; 82310; 82374; 82435; 82565; 82947; 84075; 84132; 84155; 84295; 84450; 84460; 84520; S0119

== ENCOUNTER → 2017-06-22 | Outpatient (CLI) | payer MEDICARE, OTHER ==
[~2017-06-22] MED LIST changes: +ONDA4TAB PO; +OXYC-865 PO
--- NOTE | 2017-06-22 11:46 | RADIOLOGY IMAGING REPORT ---
FACILITY: [facility] PATIENT NAME: Alejandra Freeman : 1940 MR: [id number] V: [id number] EXAM DATE: ORDERING PHYSICIAN: IVAN ESCOBAR TECHNOLOGIST: Location: [facility] [place] Patient: Alejandra Freeman : 1940 Visit/Account:[id number] Date of Sevice: 06/22/2017 GALLBLADDER HISTORY: Recent episode of pancreatitis. COMPARISON: FINDINGS: Gallbladder: There are shadowing echogenic foci within the gallbladder consistent with gallstones. T he gallbladder wall does not appear thickened. There is a negative Fried sign by technologist peter cook Liver: Negative. Common duct: Normal, 3.9 mm diameter. Pancreas: Appears grossly unremarkable as imaged other than atrophy Right kidney: Right kidney appears unremarkable measuring 10 cm in length. The resistive index is 0. 68 Upper abdominal aorta and IVC: Patent. Ascites: None visualized. IMPRESSION: Cholelithiasis although no evidence of gallbladder wall thickening biliary ductal dilatation or posit tanja Fried sign Atrophic appearing pancreas Report Dictated By: Sherley Lee MD at 06/22/2017 10:09 AM Report E-Signed By: Sherley Lee MD at 06/22/2017 11:41 AM WSN:[email or web address]
== END ==
LOC: US 07:05
PROVIDERS: ATTEND Emergency Medicine
DX: K86.89 Other specified diseases of pancreas (principal); K80.20 Calculus of gallbladder without cholecystitis without obstruction
CPT/HCPCS: 76705

== ENCOUNTER → 2017-07-13 | Outpatient (CLI) | payer MEDICARE, OTHER | LOC: LAB 14:20 | PROVIDERS: ATTEND Emergency Medicine | DX: R74.8 Abnormal levels of other serum enzymes (principal) | CPT/HCPCS: 36415; 83540; 83550 ==

== ENCOUNTER → 2017-07-16 | Outpatient (CLI) | payer MEDICARE, OTHER ==
[~2017-07-16] MED LIST changes: +IOPAMIDOL 76% 75 ML INFUS BTL 75 ML ONE
--- NOTE | 2017-07-16 13:56 | RADIOLOGY IMAGING REPORT ---
FACILITY: [facility] PATIENT NAME: Alejandra Freeman : 1940 MR: [id number] V: [id number] EXAM DATE: ORDERING PHYSICIAN: IVAN ESCOBAR TECHNOLOGIST: Location: [facility] [place] Patient: Alejandra Freeman : 1940 Visit/Account:[id number] Date of Sevice: 07/16/2017 CT ABDOMEN WITH IV CONTRAST CLINICAL INFORMATION: Pancreatic atrophy TECHNIQUE: Axial CT images were obtained through the abdomen during injection of nonionic iodinated intravenous contrast. Imaging was performed in the arterial phase and the portal venous phase.. Reformatted coronal and sag ittal images were also obtained. Dose Lowering Technique One of the following dose optimization techniques was utilized in the performance of this exam: Autom ated exposure control; adjustment of the mA and/or kV according to the patient's size; or use of an i terative reconstruction technique. Specific details can be referenced in the facility's radiology C T exam operational policy. CONTRAST: 75 mL of Isovue-370 IV contrast. COMPARISON: Gallbladder ultrasound June 22, 2017. FINDINGS: Lower lung brock: There is a 5 mm intrafissural nodule abutting the major fissure on the left best s een on image seven of series 5. Linear stranding in the lower lung brock likely representing scarri ng versus atelectasis. Liver: There is heterogeneous contrast enhancement seen along the anterior inferior aspect of the rig ht lobe on the arterial phase images although appears homogeneous on the portal venous phase images l ikely relating to a perfusional variant Biliary: Gallbladder appears unremarkable as well as the intra and extra hepatic biliary system. Pancreas: Pancreas appears mildly atrophic but not out of proportion for patient's stated age. The p ancreatic duct measures 2 mm in diameter Spleen: Multiple calcified granulomas Adrenal glands: Unremarkable. Kidneys / retroperitoneum: No evidence of nephrolithiasis or hydronephrosis Bowel / peritoneum / mesenteries: The visualized small and large bowel appear unremarkable. Lymph node assessment: No pathologic adenopathy identified. Vessels: Left ovarian vein appears dilated and tortuous atherosclerotic calcification seen throughout a nonaneurysmal abdominal aorta and branches. Musculoskeletal / Body wall: There is a levoconvex scoliosis of the lumbar spine. Multilevel spondyl otic changes of the visualized thoracal lumbar spine.. There Is a grade 1-2 anterior listhesis of L4 with respect L5. There are multiple Schmorl's nodes IMPRESSION: 1. Pancreas appears mildly atrophic but not out of proportion for patient's stated age 5 mm intrafissural nodule along the major fissure on the left For nodules less than 6 mm in a low ris k patient (minimal or absent smoking history, no history of malignancy), no routine followup is recom mended. In a high risk patient (smoking or malignancy history), optional 12 month followup can be obt ained. There is heterogeneous contrast enhancement along the anterior inferior aspect right lobe the liver o n the arterial phase images although appears homogeneous on the portal venous phase images which like ly relates to perfusional variant Calcified granulomas in the spleen Left ovarian vein appears dilated and tortuous Spondylotic changes of the lumbar spine Report Dictated By: Sherley Lee MD at 07/16/2017 1:39 PM Report E-Signed By: Sherley Lee MD at 07/16/2017 1:52 PM KESHAN:[email or web address]
== END ==
LOC: CT 02:51
PROVIDERS: ATTEND Emergency Medicine
DX: K86.89 Other specified diseases of pancreas (principal); R91.8 Other nonspecific abnormal finding of lung field; D73.89 Other diseases of spleen; M47.896 Other spondylosis, lumbar region
CPT/HCPCS: 36415; 74160; 82565; 83090; Q9967

== ENCOUNTER → 2017-07-20 | Outpatient (CLI) | payer MEDICARE, OTHER ==
[~2017-07-20] MED LIST changes: -IOPAMIDOL 76% 75 ML INFUS BTL 75 ML ONE
== END ==
LOC: LAB 16:15
PROVIDERS: ATTEND Emergency Medicine
DX: E83.19 Other disorders of iron metabolism (principal)
CPT/HCPCS: 36415; 81256

== ENCOUNTER → 2017-09-17 | Outpatient (CLI) | payer MEDICARE, OTHER | LOC: LAB 14:32 | PROVIDERS: ATTEND Emergency Medicine | DX: R74.8 Abnormal levels of other serum enzymes (principal) | CPT/HCPCS: 36415; 82728; 82784; 83516; 84160; 84165; 86038; 86706; 86707; 87340; 87350; G0472; 82040; 82247; 82248; 84075; 84155; 84450; 84460; 86803 ==

== ENCOUNTER → 2017-12-10 | Outpatient (CLI) | payer MEDICARE, OTHER ==
[2017-12-10 10:07] LABS: PLATELET COUNT, AUTOMATED 296 K/uL (150-450)
[2017-12-10 10:19] LABS: LDL CHOLESTEROL 29 mg/dl
== END ==
LOC: LAB 09:43
PROVIDERS: ATTEND Emergency Medicine
DX: I10 Essential (primary) hypertension (principal)
CPT/HCPCS: 36415; 82040; 82247; 82310; 82374; 82435; 82465; 82565; 82947; 83718; 84075; 84132; 84155; 84295; 84450; 84460; 84478; 84520; 85025

== ENCOUNTER → 2017-12-13 | Outpatient (CLI) | payer MEDICARE, OTHER ==
[~2017-12-13] MED LIST changes: +FLU180SY11 IM
== END ==
LOC: LAB 11:36
PROVIDERS: ATTEND Emergency Medicine
DX: R20.8 Other disturbances of skin sensation (principal)
CPT/HCPCS: 36415; 82607

== ENCOUNTER → 2018-01-14 | Outpatient (CLI) | payer MEDICARE, OTHER ==
--- NOTE | 2018-01-14 13:02 | RADIOLOGY IMAGING REPORT ---
FACILITY: [facility] PATIENT NAME: Alejandra Freeman : 1940 MR: [id number] V: [id number] EXAM DATE: ORDERING PHYSICIAN: IVAN ESCOBAR TECHNOLOGIST: Location: [facility] Patient: Alejandra Freeman : 1940 Visit/Account:[id number] Date of Sevice: 01/14/2018 2 VIEWS CHEST INDICATION: Shortness of breath, cough and wheezing for 10 days. COMPARISON: X-ray examination of the chest May 23, 2017 FINDINGS: Heart size within normal limits. Stable pulmonary hyperinflation without evidence of new infiltrate, consolidation, effusion or pneumo thorax. No acute bony finding. IMPRESSION: 1. Stable pulmonary hyperinflation without acute finding Report Dictated By: Kenneth Beaulieu MD at 01/14/2018 12:57 PM Report E-Signed By: Kenneth Beaulieu MD at 01/14/2018 12:58 PM WSN:[email or web address]
== END ==
LOC: RAD 10:54
PROVIDERS: ATTEND Emergency Medicine
DX: J20.9 Acute bronchitis, unspecified (principal)
CPT/HCPCS: 71046

== ENCOUNTER → 2018-02-01 | Outpatient (CLI) | payer MEDICARE, OTHER | LOC: RESP 01:05 | PROVIDERS: ATTEND Emergency Medicine | DX: G47.30 Sleep apnea, unspecified (principal); G47.36 Sleep related hypoventilation in conditions classified elsewhere; G47.61 Periodic limb movement disorder ==

== ENCOUNTER → 2018-02-28 | Outpatient (CLI) | payer MEDICARE, OTHER | LOC: RESP 00:21 | PROVIDERS: ATTEND Emergency Medicine | DX: J98.4 Other disorders of lung (principal) | CPT/HCPCS: 94060; 94726; 94729 ==

== ENCOUNTER → 2018-06-18 | Outpatient (CLI) | payer MEDICARE, OTHER ==
[~2018-06-18] MED LIST changes: +ATOR20TA65 PO; -DIPH0.5D12 IM; +DIPH0.5S2 IM; +FLUT100B ASDIRECTED; +MOME220A2 INH
--- NOTE | 2018-06-19 16:00 | RADIOLOGY IMAGING REPORT ---
FACILITY: [facility] [place] PATIENT NAME: CYNTHIA STROUD : [id number] MR: [id number] V: [id number] EXAM DATE: [id number] ORDERING PHYSICIAN: IVAN ESCOBAR TECHNOLOGIST: Aide Cotton PROCEDURE: BILATERAL DIGITAL SCREENING MAMMOGRAM WITH CAD ASSISTED INTERPRETATION & 3D TOMOSYNTHESIS REASON FOR STUDY: Screening. FAMILY HISTORY OF BREAST CANCER: BREAST PROCEDURES/TREATMENTS: COMPARISON: Prior mammogram 11/23/2016. VIEWS OBTAINED: 2D & 3D full field CC & MLO. BREAST DENSITY: The breast tissue demonstrates scattered fibroglandular tissue densities. MAMMOGRAM FINDINGS: Stable calcification in the Left breast are seen. There is no suspicious mass, calcification, or architectural distortion. IMPRESSION: BIRADS 2: Benign finding. No mammographic evidence for malignancy. DIAGNOSTIC CATEGORY 2--BENIGN FINDING. RECOMMENDATIONS: ROUTINE MAMMOGRAM AND CLINICAL EVALUATION IN 1 YEAR. Dictated by: Jesse Pepe M.D. on 06/19/2018 at 13:26 Transcribed by: GIBRAN on 06/19/2018 at 14:49 Approved by: Jesse Pepe M.D. on 06/19/2018 at 15:59 [facility]
== END ==
LOC: MAMO 00:26
PROVIDERS: ATTEND Emergency Medicine
DX: Z12.31 Encounter for screening mammogram for malignant neoplasm of breast (principal)
CPT/HCPCS: 77063; 77067

== ENCOUNTER → 2018-08-12 | Outpatient (CLI) | payer MEDICARE, OTHER ==
[~2018-08-12] MED LIST changes: +OXYGENHOME INH
--- NOTE | 2018-08-12 11:34 | RADIOLOGY IMAGING REPORT ---
FAC[place] [facility] [place] NAME: Alejandra Freeman : 1940 MR: [id number] V: [id number] EXAM DATE: ORDERING PHYSICIAN: IVAN ESCOBAR TECHNOLOGIST: Location: [facility] - [place] Patient: Alejandra Freeman : 1940 Visit/Account:[id number] Date of Sevice: 08/12/2018 CT CHEST W/O CONTRAST History: lung nodule TECHNIQUE: Contiguous axial images were performed through the chest to the level of the adrenal gla nds. No IV contrast was administered. Coronal and sagittal reformatting was also performed.Dose Lower ing Technique One of the following dose optimization techniques was utilized in the performance of this exam: Autom ated exposure control; adjustment of the mA and/or kV according to the patient's size; or use of an i terative reconstruction technique. Specific details can be referenced in the facility's radiology C T exam operational policy. COMPARISON STUDIES: CT abdomen July 16, 2017. Lungs / Pleura: There is biapical pleural parenchymal scarring The 5 mm left lower lobe nodule appears unchanged and is best appreciated on image 265 of series 4 There is a 3 mm noncalcified nodule anterior right upper lobe best appreciated on image 44 There is a 6 mm calcified nodule posterior medial right upper lobe best appreciated on image 67 There is a eight x 4 mm noncalcified nodule in the right upper lobe, image 72 There is a 3 mm noncalcified nodule posterior lateral right upper lobe, image 85 There is a 4 x 6 mm noncalcified nodule posterior aspect the right upper lobe on image 134 There is a 2 mm noncalcified nodule inferior right upper lobe image 173 There is a 4.6 mm noncalcified nodule posterior lateral right middle lobe on image 201 There is a 3 mm noncalcified nodule lateral right lower lobe on image 209 There is a 2 mm noncalcified nodule anterior right lower lobe on image 218 There is a 3 mm noncalcified nodule anterior right lower lobe on image 249 There is a 3 mm noncalcified nodule inferior lingula best appreciated on image 235 This a 2 mm noncalcified nodule left lower lobe on image 210 Is a two dominant noncalcified nodule lateral left upper lobe on image 124 There is a 2 mm nodules appear segment left lower lobe on image 99 There is a 5 mm noncalcified nodule medial left upper lobe on image 73 There is a 2 mm calcified nodule posterior left upper lobe on image 41 Mediastinum/nodes: There are numerous calcified pretracheal, right hilar and subcarinal lymph nodes Heart and vessels: There mild to moderate coronary artery calcifications. There is a trace pericard ial effusion Musculoskeletal / Body wall: There spondylotic changes of the visualized thoracal lumbar spine and Schmorl's nodes at multiple levels Upper abdomen: Numerous calcified granulomas are present within the spleen IMPRESSION: There are numerous bilateral pulmonary nodules identified measuring up to 6 mm. Some of these nodule s are calcified. There are multiple calcified right hilar mediastinal lymph nodes and calcified gran ulomas within the spleen. Some of the nodules may simply represent noncalcified granulomas however f ollow-up according to the Fleischner Society recommendations are as follows. FLEISCHNER SOCIETY FOLLOW-UP GUIDELINES FOR NEWLY DETECTED INCIDENTAL NODULES IN PERSONS 35 YEARS OF AGE OR OLDER. *These recommendations do NOT apply to lung cancer screening, patients with immunosuppression or wesley ents with a known primary malignancy. MULTIPLE SOLID NODULES If nodule size is < 6 mm: * Low risk patient ? No routine follow-up. * High risk patient ? Optional CT at 12 months. If nodule size is 6-8 mm: * Low risk patient ? CT at 3-6 months, then consider CT at 18-24 months if no change. * High risk patient ? CT at 3-6 months, then CT at 18-24 months if no change. If nodule size is > 8 mm: * Low risk patient ? CT at 3-6 months, then consider CT at 18-24 months if no change. * High risk patient ? CT at 3-6 months, then consider CT at 18-24 months if no change. LOW RISK PATIENT: Minimal or absent history of tobacco use and of other known risk factors.HIGH RISK PATIENT: Tobacco use, family history of lung cancer, upper pulmonary lobe location of nodule, presenc e of emphysema, pulmonary fibrosis, older age. Jennifer H, Arben DP, Angel JM, et al. Guidelines for Management of Incidental Pulmonary Nodules Dete cted on CT Images: From the Fleischner Society 2017. Radiology. [facility] Report Dictated By: Sherley Lee MD at 08/12/2018 11:00 AM Report E-Signed By: Sherley Lee MD at 08/12/2018 11:27 AM WSN:[id number]
== END ==
LOC: CT 02:51
PROVIDERS: ATTEND Emergency Medicine
DX: R91.8 Other nonspecific abnormal finding of lung field (principal)
CPT/HCPCS: 71250